=== PATIENT | male | born 1980 | race American Indian/Alaskan Native ===

== ENCOUNTER 2024-03-09 13:41 | Emergency (ER) | payer BC, SELFPAY ==
[2024-03-09 14:14] VITALS: BP 134/95; PULSE 95; RESP 20; TEMP 36.8; O2SAT 96; BMI 36.1
--- NOTE | 2024-03-09 14:38 | EDNOTE_ITS ---
<Statement entered by Alicia Spicer MD - 03/11/24 09:14> As co-signing physician, I was present and available for consult prn. I concur with the plan and care as documented by the midlevel provider. ED General RME/HPI General Chief complaint: General Adult/Misc Complain Stated complaint: SEND BY PMD FOR OXYGEN 92-95 Time Seen by Provider: 03/09/24 13:51 Source: patient Arrival date/time: 03/09/24 13:41 This is a 43-year-old male who presents to the emergency department with complaints of nasal congestion, cough, H/A and coughing up green mucus for 3 days. Patient reports he was evaluated by his PCP and was sent over for possible abnormal oxygenation. Upon arrival patient's oxygen is 96 to 98%. Patient denies shortness of breath, chest pain no BLE. Patient denies nausea vomiting diaphoresis or fever chills or rigors. Does report that a year ago he had pneumonia. Mode of arrival: ambulatory Related Data Previous Rx's ?Medication ?Instructions ?Recorded acetaminophen 500 mg capsule 1,000 mg (2 x 500 mg) PO Q8HR PRN 02/10/23 pain #30 caps benzonatate 100 mg capsule 100 mg PO TID #14 caps 02/10/23 doxycycline hyclate 100 mg capsule 100 mg PO Q12H 7 days #14 caps 03/09/24 fluticasone propionate 50 1 spray intranasal BID 5 days #16 03/09/24 mcg/actuation nasal grams spray,suspension (Allergy Relief (fluticasone)) Allergies Allergy/AdvReac Type Severity Reaction Status Date / Time Penicillins Allergy Intermediate Swelling Verified 03/09/24 13:44 of Lip/Tongue/Throat Review of Systems Review of Systems Systems Reviewed: All systems reviewed, normal except as documented Narrative Review of Systems: See HPI ED Exam Narrative Physical exam: General: Sittiing in Exam table in no acute distress, answering questions appropriately HENT: normocephalic, atraumatic, EOMI, PERRLA, moist mucous membranes, + nasal congestion Chest: chest wall is nontender Cardiac: regular rate and rhythm, normal S1 and S2, no murmurs, rubs, or gallops, capillary refill ?2 seconds Pulmonary: clear to auscultation bilaterally, no wheezing, crackles, or rhonchi Abdominal: active bowel sounds, soft, nontender, nondistended Neuro: A&OX3, CN II-XII intact, sensation grossly intact bilaterally in UE and LE. Skin: no rashes, no ecchymosis Ext: no lower extremity edema Course Quality Measures none Vital Signs Vital signs: Vital Signs Temperature 98.2 F 03/09/24 14:14 Pulse Rate 95 03/09/24 14:14 Respiratory Rate 20 03/09/24 14:14 Blood Pressure 134/95 H 03/09/24 14:14 Pulse Oximetry (%) 96 03/09/24 14:14 Oxygen Delivery Method Room Air 03/09/24 14:14 MDM Patient data External records reviewed:: [facility] previous records Clinical information provided by:: patient Social determinants that could affect healthcare access:: none Patient has the following chronic illnesses:: Hypertension How is presenting disease/condition affected by chronic disease/condition?: no chronic disease Evaluation data The following diagnostics were reviewed and interpreted by me:: other (specify) Lab and/or radiology exams considered but not ordered:: Chest x-ray however lung sounds clear. Interpretation Summary: No Medications Medications considered but not ordered:: No Medication administrations:: No Consultations Consultation(s) initiated? (list below): No Diagnosis Differential Diagnosis ED Complaint MDM: URI, influenza, COVID-19, sinusitis Most likely diagnosis given after review of the tests above:: Sinusitis Admission Indicated Admission indicated?: not indicated Explain why admission is indicated or not indicated:: Can be treated outpatient Admission Request Was there a request for admission?: No Disposition Plan Disposition Plan: Discharge Discharge Attestation Discharge Attestation: The patient and all family members were given an opportunity to ask questions and understood the discharge instructions. Discharge instructions specifically effects, indications for sooner follow up or return to the emergency department, and the expected course of current diagnosis. Patient condition: Stable Medical Decision Making MDM Narrative MDM Narrative: 43-year-old male here with complaints of nasal congestion, cough sinus headache coughing up green mucus. Vital signs stable oxygenation stable no hypoxia noted no increased resp distress. Lung sounds clear no x-ray ordered. I will treat patient for sinusitis he will follow-up with his clinic in 2 days for follow-up care Advised that if no improvement please return to the emergency department or call [phone] as soon as possible. Differential Diagnosis Differential Diagnosis: URI, influenza, COVID-19, sinusitis Discharge Plan Plan Patient Disposition: HOME (Self Care) Patient condition on transfer: Stable Prescriptions/Referrals Prescriptions/Med Rec: New doxycycline hyclate 100 mg capsule 100 mg PO Q12H 7 Days Qty: 14 0RF fluticasone propionate [Allergy Relief (fluticasone)] 50 mcg/actuation spray,suspension 1 spray intranasal BID 5 Days Qty: 16 0RF Rx Instructions: administer into each nostril No Action benzonatate 100 mg capsule 100 mg PO TID Qty: 14 0RF acetaminophen 500 mg capsule 1,000 mg PO Q8HR PRN (Reason: pain) Qty: 30 0RF Problem List Clinical Impression: Sinusitis chronic, frontal Patient/Caregiver Discharge Instructions Discharge Activity: activity as tolerated Education Materials: ED Sinusitis (Antibiotic Treatment) Additional Instructions: Please follow-up with your primary doctor. your oxygenation here in the ED was 95 to 98% Please start your antibiotics as directed. Return to the emergency department this any worsening symptoms change in condition. Print Language: Arabic Stand Alone Forms: [facility] Award Info., Patient Portal Info Letter PA/NURSES EDUCATOR Supervising Physician PA/NURSES EDUCATOR Supervising Physician: Dr. Grossman
== END 2024-03-09 16:47 | disposition home or self-care (01) ==
LOC: SERX 14:57
PROVIDERS: Emergency Provider Emergency Medicine; PCP Family Medicine
DX: J32.1 Chronic frontal sinusitis (principal)
CPT/HCPCS: 99281